=== PATIENT | male | born 1995 | race Caucasian/White ===

== ENCOUNTER 2019-12-25 18:22 | Emergency (ER) | payer BC ==
[~2019-12-25] VITALS: Ht 165.1 cm; Wt 77.6 kg
[2019-12-25 18:37] VITALS: BP 169/95; Ht 165.1 cm; Wt 77.6 kg
== END 2019-12-25 19:02 | disposition home or self-care (01) ==
LOC: ED 18:22
DX: M54.42 Lumbago with sciatica, left side (principal); J45.909 Unspecified asthma, uncomplicated

== ENCOUNTER 2020-02-05 15:34 | Emergency (ER) | payer BC ==
[~2020-02-05] VITALS: Ht 167.6 cm; Wt 74.8 kg
[2020-02-05 15:47] VITALS: BP 187/98; Ht 167.6 cm; Wt 74.8 kg
== END 2020-02-05 16:44 | disposition home or self-care (01) ==
LOC: ED 15:34
DX: M54.40 Lumbago with sciatica, unspecified side (principal); J45.909 Unspecified asthma, uncomplicated
CPT/HCPCS: J1885